=== PATIENT | male | born 2005 | race Caucasian/White ===

== ENCOUNTER 2024-06-11 11:13 | Outpatient (CLI) | payer OTHER, SELFPAY ==
[2024-06-11 18:58] LABS: Alanine Aminotransferase 9 U/L (6-50); Albumin Level 4.8 g/dL (3.5-5.1); Alkaline Phosphatase 74 U/L (38-126); Anion Gap 11 mmol/L (4-12); Aspartate Amino Transferase 38 U/L (17-59); Bilirubin,Total 1.1 mg/dL (0.2-1.3); Blood Urea Nitrogen 12 mg/dL (9-20); Calcium 9.6 mg/dL (8.4-10.2); Carbon Dioxide 26 mmol/L (22-30); Chloride 104 mmol/L (98-107); Cholesterol 142 mg/dL (0-200); Estimated Glomerular Filt Rate > 60; Glucose 77 mg/dL (65-110); HDL Direct 39 mg/dL; Potassium 4.4 mmol/L (3.4-5.0); Sodium 141 mmol/L (137-145); Triglycerides 36 mg/dL (<150)
[2024-06-11 19:00] LABS: Hematocrit 46.3 % (42.0-52.0); Hemoglobin 15.4 g/dL (14.0-18.0); Mean Corpuscular HGB Conc 33.3 g/dl (32-36); Mean Corpuscular Hemoglobin 30.4 pg (26-34); Mean Corpuscular Volume 91.5 fl (80-100); Mean Platelet Volume 10.1 fl (7.4-10.4); Platelet Count Result 246 k/mm3 (150-375); Red Blood Count 5.06 M/mm3 (4.6-6.20); Red Cell Distribution Width 13.3 % (11.5-14.5); White Blood Count 11.2 K/mm3 (4.5-10.0)
[2024-06-11 19:08] LABS: LDL Cholesterol Direct 77 mg/dL
[2024-06-11 19:42] LABS: Iron 129 ug/dL (49-181)
[2024-06-11 19:51] LABS: Percent Iron Saturation 44 % (20-50)
[2024-06-11 20:02] LABS: Free T4 Free Thyroxine 1.07 ng/mL (0.78-2.19)
[2024-06-11 20:04] LABS: Folic Acid 6.9 ng/mL (2.76->20)
[2024-06-11 20:07] LABS: Vitamin D 25 Hydroxy 25.5 ng/mL
== END 2024-06-11 11:14 | disposition home or self-care (01) ==
LOC: ANHBWCLAB 11:16
PROVIDERS: PCP Nurse Practitioner Adult Health; Visit Provider Nurse Practitioner Adult Health
DX: F79 Unspecified intellectual disabilities (principal); R53.83 Other fatigue; Z13.220 Encounter for screening for lipoid disorders
CPT/HCPCS: 36415; 80053; 80061; 82306; 82607; 82728; 82746; 83540; 83550; 84439; 84443; 85027

== ENCOUNTER 2024-11-08 14:04 | Outpatient (CLI) | payer OTHER, SELFPAY ==
--- NOTE | ~2024-11-08 | XR_ITS ---
XR knee RT 3V Ordering provider: Sasha Lewis APRN History: . M25.569 - Pain in unspecified knee . Comparison: None. FINDINGS: BONES: No acute fracture or dislocation. JOINT SPACES: Normal. SOFT TISSUES: Normal. IMPRESSION: No acute osseous abnormality right knee. Reviewed, dictated and finalized at location A.
--- NOTE | ~2024-11-08 | XR_ITS ---
XR knee LT 3V Ordering provider: Sasha Lewis APRN History: . Bilateral knee pain, weakness, no injury . Comparison: None. FINDINGS: BONES: No acute fracture or dislocation. JOINT SPACES: Normal. SOFT TISSUES: Normal. IMPRESSION: No acute osseous abnormality left knee. Reviewed, dictated and finalized at location A.
--- OUTSIDE RECORDS SUMMARY | 2024-11-08 15:16 | XMS_ITS | Encounter Summary ---
Author Organization [facility] Address [address] [place] [address] Care Team Providers Care Vacuum Evaporation Operator Name Role Phone Prabha Silva MD Primary Care Provider [phone] Eileen Leary MD Unavailable [phone] Reason for Visit * Reason Onset Date Comments Refill Request 06/21/2018 Encounter Details Date Type Department Care Team (Late st Contact Info) Description 06/21/2018 Telephone [facility] Pediatric[facility] - [facility] [address] [place] [id number] Prabha Silva MD [address] [place] [address] [phone] Refill Request Social History Tobacco Use Types Packs/Day Years Used Date Smoking Tobacco: Never Smokeless Tobacco: Never Sex and Gender Information Value Date Recorded Sex Assigned at Not on file Legal Sex 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 Medication(s) to be refilled:guanFACINE (TENEX) 1 MG tablet Last well child check up: 04/17/18 Pharmacy verified in [place]. No future appointments. [facility] PATIENT CARE TECHNICIAN documented in this encounter Plan of Treatment Not on file documented as of this encounter Visit Diagnoses Not on filedocumented in this encounter Care Teams Vacuum Evaporation Operator Relationship Specialty Start Date End Date Prabha Silva MD [employer] [place] [address] PCP - General Pediatrics 02/22/17 Eileen Leary MD [employer] [place] [address] Student Resident 09/12/17 documented as of this encounter
--- OUTSIDE RECORDS SUMMARY | 2024-11-08 15:16 | XMS_ITS | Continuity of Care Document ---
Author Organization [facility] Address [address] [place] [address] Phone Care Team Providers Care Synthetic Plasterer Name Role Phone Daisha MELCHOR, Susan Unavailable Unavailable Allergies, Adverse Reactions, Alerts Substance Reaction Status Criticality No Known Allergies Active No Inform ation Medications Medication Instructions Dosage Effective Dates (start - stop) Status Comments PEDIASURE 1 can a day for the diagnosis of feeding difficulties and inadequate weight gain - Active PEDIASURE 1 can daily/diagnosis/under weight/feeding concerns - Active Pedialyte Oral Soln 32 ounces daily for feeding and weight concerns and diahrrea - Active BETAMETHASONE 0.2%CREAM(GM) Apply cream to affected area twice per day use with clotrimazole - Active Mycelex 1 % Topical Cream Apply cream to affected area twice per day - Active NO CURRENT MEDICATIONS_ N/A Not Applicable - Active Advance Directives Directive Yes / No Effective Date File Name No Information Encounters Encounter Description Practice Location Reason(s) For Visit Diagnoses Date Provider Providers Copied on Encounter [facility], [address] [place] [address], [facility], tel:[phone] [facility] No Information 0 Daisha Davis. [address] [place] [address], [id number]. [phone] [facility], [address] [place] [address], [facility], tel:[phone] [facility] Failure To Thrive 0 Daisha Davis. [address] [place] [address], [id number]. tel:[phone] [facility], [address] [place] [address], [id number], [place] tel: [phone] [facility] Tongue Tie 7200 9 Seb Brown. [address] [place] [address], [id number]. tel:[phone] [facility], [address] [place] [address], [facility], [place] tel: [phone] [facility] Tongue Tie 9200 9 Seb Brown. [address] [place] [address], [id number]. tel:[phone] Referring Provider: Susan Ashton V, [address] [place] [address], [id number]. tel:[phone] [facility], [address] [place] [address], [facility], [place] tel: [phone] [facility] Tongue TieLack Of Physiological DevelopmentSpeech Disturbance Nec 5200 9 Daisha Davis. [address] [place] [address], [id number]. tel:[phone] [facility], [address] [place] [address], [facility], [place] tel: [phone] [facility] 8-200 9 Nova Lucas. [address], [id number]. tel:[phone] [facility], [address] [place] [address], [facility], [place] tel: [phone] [facility] No Information 8 Daisha Davis. [address] [place] [address], [id number]. tel:[phone] [facility], [address] [place] [address], [facility], [place] tel: [phone] [facility]iaEs[facility] ropia Nos 1 8 Nova Lucas. [address], [address]. tel: [facility], [address] [place] [address], [address], [place] tel: [phone] [facility] No Information 3-200 8 Daishasigifredo Tobinambrosio. [address] [place] [address], [id number]. tel: [facility], [address] [place] [address], [address], [place] tel: [phone] [facility] Abnormal Loss Of WeightSpeech/lang uage Dis Nec Apr-2 5200 7 [facility]. [address] [place] [address], [id number]. tel: [facility], [address] [place] [address], [address], [place] tel: [phone] [facility] Diarrhea 0-200 7 DaishaFormerly [facility]. [address] [place] [address], [id number]. tel: [facility], [address] [place] [address], [address], [place] tel: [phone] [facility] Opn Wnd Ocular Adnex NecNonspecif Skin Erupt Nec Adalberto-0 5-200 7 DaishaFormerly [facility]. [address] [place] [address], [id number]. tel: [facility], [address] [place] [address], [address], [place] tel: [phone] [facility] Nonspecif Skin Erupt Nec 6200 7 No Information [facility], [address] [place] [address], [address], [place] tel: [phone] [facility] 2 5-200 7 Nova Lucas. [address], [address]. tel: [facility], [address] [place] [address], [facility], [place] tel: [phone] [facility] Nos 9200 7 Nova Lucas. [address], [facility]. tel:[phone] [facility], [address] [place] [address], [facility], tel: [phone] [facility] Acute Conjunctivitis Nos Oct-0 6200 7 [facility]. [address] [place] [address], [id number]. tel:[phone] [facility], [address] [place] [address], [facility], tel: [phone] [facility] Underweight 8200 7 [facility]. [address] [place] [address], [id number]. tel:[phone] Family History Family Member Type Diagnosis Age At Onset No Information Payers Payer name Insurance type Covered green party ID Authoriza tion(s) No Information Social History Type Description Quantity Date Captured Comments Sex Male Smoking Status No Information Chief Complaint And Reason For Visit No Information History Of Present Illness Encounter Date Complaint History Of Prese nt Illness No Information Instructions Date Instruction Additional Infor mation No Information Assessments Type Assessment Date No Information
--- OUTSIDE RECORDS SUMMARY | 2024-11-08 15:16 | XMS_ITS | Clinical Summary ---
Author Organization [facility] Address [address] [place] [address] Phone Care Team Providers Care General Counselor Name Role Phone Provider, None Primary Care Provider Unavailabl e Allergies No known active allergies Medications ondansetron (ZOFRAN-ODT) 4 MG TABLET DISPERSIBLE Take 1 Tablet by mouth every 8 hours as needed for Nausea - 1st line. 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 Gender Identity Male 04/20/2024 12:11 AM CDT Sexual Orientation Not on file Last Filed Vital Signs Vital Sign Reading Time Taken Comments Blood Pressure 120/85 04/20/2024 6:07 AM CDT Pulse 65 04/20/2024 6:07 AM CDT Temperature 36.4 C (97.6 F) 04/19/2024 11:57 PM CDT Respiratory Rate 17 04/20/2024 6:07 AM CDT Oxygen Saturation 98% 04/20/2024 6:07 AM CDT Inhaled Oxygen Concentration - - Weight 49.9 kg (110 lb) 04/19/2024 11:57 PM CDT Height 162.6 cm (5' 4 ) 04/19/2024 11:57 PM CDT Body Mass Index 18.88 04/19/2024 11:57 PM CDT Plan of Treatment Health Maintenance Due Date Last Done Comments Hepatitis C Virus (HCV) Screening 2003 Meningococcal B Immunization (1 of 2 - Standard) 2019 Influenza Immunization (#1) 03/18/202404/18, 04/27/2019, 04/17/2018, Additional history exists SARS-COV-2 Immunization ( - 2023- season) 2024 Respiratory Syncytial Virus (RSV) Immunization (Adult) (1 - 1-dose 75+ series) 11/01/2078 Hepatitis B Immunization Completed 005, 11/05/2004, 03/20/2004, Additional history exists Pneumococcal Immunization Combined Aged Out 11/05/2004, 03/20/2004 No longer eligibl e based on patient's age to complete this topic Hepatitis A Immunization Discontinued 008, 11/22/2007, 09/14/2006, Additional history exists Measles Mumps Rubella (MMR) Immunization Discontinued 11/22/2007, 11/05/2004 Polio (IPV) Immunization Discontinued 008, 01/22/2005, 11/05/2004, Additional history exists Varicella Immunization Discontinued 11/22/2007, 2004 DTaP/Tdap/Td Immunization Discontinued 2013, 11/22/2007, 05/04/2006, Additional history exists TdaP Immunization Completed 05/27/2014 Human Papillomavirus (HPV) Immunization Completed 04/17/2018, 05/03/2017 Meningococcal Immunization (ACWY) Completed 05/15/2020, 12/22/2015 Rotavirus Immunization Aged Out No lo nger eligible based on patient's age to complete this topic Insurance MEDICAID [place] [employer]ID [employer] MEDICAID [employer] Care Teams General Counselor Relationship Specialty Start Date End Date Provider, None [place] PCP - General 04/20/24
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
[2024-11-08 19:35] LABS: Hematocrit 48.2 % (42.0-52.0); Hemoglobin 15.6 g/dL (14.0-18.0); Mean Corpuscular HGB Conc 32.4 g/dl (32-36); Mean Corpuscular Hemoglobin 29.5 pg (26-34); Mean Corpuscular Volume 91.1 fl (80-100); Mean Platelet Volume 10.1 fl (7.4-10.4); Platelet Count Result 231 k/mm3 (150-375); Red Blood Count 5.29 M/mm3 (4.6-6.20); Red Cell Distribution Width 12.8 % (11.5-14.5); White Blood Count 5.9 K/mm3 (4.5-10.0)
[2024-11-08 20:06] LABS: Alanine Aminotransferase 15 U/L (6-50); Albumin Level 4.8 g/dL (3.5-5.1); Alkaline Phosphatase 79 U/L (38-126); Anion Gap 8 mmol/L (4-12); Aspartate Amino Transferase 63 U/L (17-59); Blood Urea Nitrogen 7 mg/dL (9-20); Calcium 9.3 mg/dL (8.4-10.2); Carbon Dioxide 32 mmol/L (22-30); Chloride 101 mmol/L (98-107); Estimated Glomerular Filt Rate > 60; Glucose 81 mg/dL (65-110); Potassium 4.2 mmol/L (3.4-5.0); Sodium 141 mmol/L (137-145)
[2024-11-08 20:16] LABS: Vitamin D 25 Hydroxy 33.4 ng/mL
== END 2024-11-08 14:05 | disposition home or self-care (01) ==
PROVIDERS: PCP Nurse Practitioner Adult Health; Visit Provider Nurse Practitioner Adult Health
DX: R79.89 Other specified abnormal findings of blood chemistry (principal); F39 Unspecified mood [affective] disorder; Z13.29 Encounter for screening for other suspected endocrine disorder; M25.562 Pain in left knee; M25.561 Pain in right knee
CPT/HCPCS: 36415; 73562; 80053; 82306; 82607; 84439; 84443; 85027